=== PATIENT | male | born 1935 | race Caucasian/White ===

== ENCOUNTER → 2018-02-24 | Outpatient (CLI) | payer MEDICARE, OTHER ==
[~2018-02-24] MED LIST: CIPROFLOXACIN500 M1 PO; COREG6.25 MG PO; FLAGYL500 MG PO; LISINOPRIL-HCT1 EACH PO; LISINOPRIL5 MG; OMEPRAZOLE20 MG PO; PRAVACHOL80 MG PO; PROZAC20 MG PO; TRAZODONE HCL150 MG PO
[2018-02-24 10:57] LABS: BASOPHILS % 0.5 % (0.0-1.0); EOSINOPHILS # (AUTO) 0.1 (0.0-0.4); EOSINOPHILS % 1.6 % (0.0-6.0); HEMATOCRIT 38.1 % (38.2-49.6); HEMOGLOBIN 13.4 g/dL (14.0-18.0); LYMPHOCYTES # (AUTO) 1.8 (1.0-3.2); LYMPHOCYTES % 31.3 % (18.0-39.1); MEAN CORPUSCULAR HEMOGLOBIN 29.9 pg (28-32); MEAN CORPUSCULAR HGB CONC 35.2 g/dL (31-35); MONOCYTES # (AUTO) 0.4 (0.2-0.8); MONOCYTES % 7.1 % (4.4-11.3); NEUTROPHILS # (AUTO) 3.4 (2.1-6.9); NEUTROPHILS % 59.3 % (38.7-80.0); PLATELET COUNT 187 x10e3/uL (140-360); RED BLOOD COUNT 4.48 x10e6/uL (4.3-5.7); RED CELL DISTRIBUTION WIDTH 11.6 % (11.7-14.4)
== END ==
LOC: LAB 10:33
PROVIDERS: ATTEND General Practice
DX: R53.1 Weakness (principal)
CPT/HCPCS: 36415; 85025

== ENCOUNTER 2018-10-19 19:50 | Observation (INO) | payer MEDICARE, OTHER ==
[~2018-10-19] VITALS: Ht 183.9 cm; Wt 96.6 kg
--- OUTSIDE RECORDS SUMMARY | 2018-10-19 19:53 | XMS REPORT | Continuity of Care Document ---
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 [employer] Unavailable Unavailable Problems Problem Status Onset Date Classification Date Reported Comments Source Esophageal obstruction 10/11/2017 04/18/[address] [facility] [address] SENT/OTHER Active 09/28/2017 [facility] ESOPHAGEAL OBSTRUCTION DUE TO FOOD IMPAC Active 09/28/2017 [facility] Food in esophagus causing other injury, initial encounter 04/18/2018 [facility] Dysphagia, unspecified 04/18/2018 [facility] Polyp of stomach and duodenum 04/18/2018 [facility] Essential hypertension 04/18/2018 [facility] Dehydration 04/18/2018 [facility] Feeding difficulties 04/18/2018 [facility] Gastro-esophageal reflux disease without esophagitis 04/18/2018 [facility] Hyperlipidemia, unspecified 04/18/2018 [facility] Major depressive disorder, single episode, unspecified 04/18/2018 [facility] ESOPHAGEAL OBSTRUCTION Active [facility] Medications Medication Details Route Status Patient Instructions Ordering Provider Order Date Source Sodium Chloride 0.9% IV 1,000 mL 1,000 mL, Rate: 25 ml/hr, Infuse over: 40 hr, Route: IV, Dosing Weight 100 kg, Total Volume: 1,000, Start date: 09/29/17 17:19:00 CDT, Duration: 30 day, Stop date: 10/29/17 17:18:00 CDT, 2.3, m2 Inactive 09/29/2017 [facility] normal saline 0.9% IV 1,000 mL 1,000 mL, Rate: 100 ml/hr, Infuse over: 10 hr, Route: IV, Dosing Weight 100 kg, Total Volume: 1,000, Start date: 09/29/17 10:02:00 CDT, Duration: 30 day, Stop date: 10/29/17 10:01:00 CDT, 2.3, m2 Inactive 09/29/2017 [facility] Aleve 220 mg, PO, Q12H, 0 Refill(s) Inactive 09/29/2017 [facility] Aspirin 81 MG Enteric Coated Tablet 81 mg=1 tab, PO, Bedtime, # 90 tab, 3 Refill(s) Active 09/29/2017 [facility] Hydrochlorothiazide 12.5 MG / Lisinopril 20 MG Oral Tablet 1 tab, PO, Daily, # 30 tab, 0 Refill(s) Active 09/29/2017 [facility] Trazodone Hydrochloride 50 MG Oral Tablet 50 mg=1 tab, PO, Bedtime, # 30 tab, 1 Refill(s) Active 09/29/2017 [facility] Pravastatin 40 mg, PO, Bedtime, # 30 tab, 0 Refill(s) Active 09/29/2017 [facility] Fluoxetine 20 MG Oral Capsule [Prozac] See Instructions, 1 cap PO Daily, 0 Refill(s) Active 09/29/2017 [facility] Omeprazole 20 mg, PO, BID, 0 Refill(s) Active 09/29/2017 [facility] Nitroglycerin 0.4 MG Sublingual Tablet 0.4 mg, 1 tab, Route: PO, Drug form: TAB, ONCE, Dosing Weight 86.364, kg, Priority: STAT, Start date: 09/28/17 22:14:00 CDT, Stop date: 09/28/17 22:14:00 CDTNotes: (Same as:Nitroquick, Nitrostat) "Do Not Crush" Sublingual tablet Inactive 09/29/2017 [facility] Glucagon 1 mg, Route: IV, Drug form: PDR/INJ, ONCE, Dosing Weight 86.364, kg, Priority: STAT, Start date: 09/28/17 22:14:00 CDT, Stop date: 09/28/17 22:14:00 CDT Inactive 09/29/2017 [facility] Zofran ODT 4 mg, 1 tab, Route: PO, Drug form: TABDIS, ONCE, Dosing Weight 86.364, kg, Priority: STAT, Start date: 09/28/17 21:26:00 CDT, Stop date: 09/28/17 21:26:00 CDTNotes: (Same as: Zofran ODT) Inactive 09/29/2017 [facility] Glucagon 1 mg, Route: IM, Drug form: PDR/INJ, ONCE, Dosing Weight 86.364, kg, Priority: STAT, Start date: 09/28/17 21:26:00 CDT, Stop date: 09/28/17 21:26:00 CDT Inactive 09/29/2017 [facility] Glucagon 1 mg, Route: IV, ONCE, Dosing Weight 86.364, kg, Priority: STAT, Start date: 09/28/17 21:23:00 CDT, Stop date: 09/28/17 21:23:00 CDT Inactive 09/29/2017 [facility] Zofran 4 mg, Route: IVP, Drug form: INJ, ONCE, Dosing Weight 86.364, kg, Priority: STAT, Start date: 09/28/17 21:23:00 CDT, Stop date: 09/28/17 21:23:00 CDT Inactive 09/29/2017 [facility] Allergies, Adverse Reactions, Alerts No Known Medication Allergies Immunizations No Data Provided for This Section Results Order Name Results Value Reference Range Date Interpretation Comments Source CHEM PANEL eGFR 56 09/29/2017 Result Comment: The eGFR is calculated using the CKD-EPI formula. In most young, healthy individuals the eGFR will be >90 mL/min/1.73m2. The eGFR declines with age. An eGFR of 60-89 may be normal in some populations, particularly the elderly, for whom the CKD-EPI formula has not been extensively validated. Use of the eGFR is not recommended in the following populations:

Individuals with unstable creatinine concentrations, including patients and those with serious co-morbid conditions.

Patients with extremes in muscle mass or diet.

The data above are obtained from the National Kidney Disease Education Program (NKDEP) which additionally recommends that when the eGFR is used in patients with extremes of body mass index for purposes of drug dosing, the eGFR should be multiplied by the estimated BMI. [facility] CHEM PANEL Calcium Lvl 7.8 8.5 - 10.5 09/29/2017 [facility] CHEM PANEL Creatinine Lvl 1.21 0.50 - 1.40 09/29/2017 [facility] CHEM PANEL Glucose Lvl 94 70 - 99 09/29/2017 [facility] CHEM PANEL CO2 27 24 - 32 09/29/2017 [facility] CHEM PANEL Chloride Lvl 103 95 - 109 09/29/2017 [facility] CHEM PANEL Sodium Lvl 139 135 - 145 09/29/2017 [facility] CHEM PANEL BUN 15 7 - 22 09/29/2017 [facility] CHEM PANEL Potassium Lvl 4.4 3.5 - 5.1 09/29/2017 [facility] CHEM PANEL AGAP 13.4 10.0 - 20.0 09/29/2017 [facility] HEMATOLOGY Hgb 13.2 14.0 - 18.0 09/29/2017 [facility] RBC 4.39 4.70 - 6.10 09/29/2017 [facility] Hct 37.5 42.0 - 54.0 09/29/2017 [facility] MCV 85.3 80.0 - 94.0 09/29/2017 [facility] Platelet 301 133 - 450 09/29/2017 [facility] RDW 12.5 11.5 - 14.5 09/29/2017 [facility] MPV 7.6 7.4 - 10.4 09/29/2017 [facility] MCHC 35.2 32.0 - 36.0 09/29/2017 [facility] MCH 30.0 27.0 - 31.0 09/29/2017 [facility] WBC 6.3 3.7 - 10.4 09/29/2017 [facility] Segs 65.9 45.0 - 75.0 09/29/2017 [facility] Monocytes 7.0 2.0 - 12.0 09/29/2017 [facility] Lymphocytes 25.5 20.0 - 40.0 09/29/2017 [facility] Eosinophils 1.0 0.0 - 4.0 09/29/2017 [facility] Monocytes # 0.4 0.0 - 0.8 09/29/2017 [facility] Basophils 0.6 0.0 - 1.0 09/29/2017 [facility] Lymphocytes # 1.6 1.0 - 5.5 09/29/2017 [facility] Neutrophils # 4.1 1.5 - 8.1 09/29/2017 [facility] Eosinophils # 0.1 0.0 - 0.5 09/29/2017 [facility] Pathology Reports No Data Provided for This Section Diagnostic Reports Report Value Date Source Chest 2 views DX Patient Name: TRACI BRIDGES : 1935; Age: 82 years y/o Male MR: [id number] * CHEST, 2 views HISTORY: Abnormal chest sounds, evaluate for possible foreign body. COMPARISON: None TECHNIQUE: Frontal and lateral radiographs of the chest were obtained. FINDINGS: No radiopaque foreign body is seen. The lungs are clear. There are no pleural effusions. The heart and pulmonary vasculature are within normal limits. The regional skeleton is unremarkable. IMPRESSION: 1. No active disease. SL: GHASSAN 09/28/2017 [facility] Consultation Notes No Data Provided for This Section Discharge Summaries No Data Provided for This Section History and Physicals No Data Provided for This Section Vital Signs Vital Sign Value Date Comments Source Systolic (mm Hg) 156 09/29/2017 [facility] Diastolic (mm Hg) 77 09/29/2017 [facility] Respitory Rate 19 09/29/2017 [facility] Systolic (mm Hg) 147 09/29/2017 [facility] Diastolic (mm Hg) 83 09/29/2017 [facility] Respitory Rate 18 09/29/2017 [facility] Respitory Rate 18 09/29/2017 [facility] Systolic (mm Hg) 165 09/29/2017 [facility] Diastolic (mm Hg) 66 09/29/2017 [facility] Heart Rate 62 09/29/2017 [facility] Temperature Oral (F) 98.4 F 09/29/2017 [facility] Temperature Oral (F) 97.8 F 09/29/2017 [facility] Heart Rate 51 09/29/2017 [facility] Heart Rate 52 09/29/2017 [facility] Temperature Oral (F) 97.6 F 09/29/2017 [facility] BMI Calculated 28.31 09/29/2017 [facility] Weight 100 09/29/2017 [facility] Height 187.96 cm 09/29/2017 [facility] Weight 86.364 09/29/2017 [facility] Encounters Location Location Details Encounter Type Encounter Number Reason For Visit Attending Provider ADM Date DC Date Status Source [facility] Observation [id number] Gustavo Alvarez Jr 09/29/2017 09/29/2017 [facility] Procedures Procedure Code Date Perfomer Comments Source Implantation of penile prosthesis [id number] [facility] Procedure on prostate [id number] [facility] Tonsillectomy [id number] [facility] Assessment and Plan Assessment and Plan Date Source Extracted from:Title: Clinical Document Author: Mike Lam MD Date: 09/29/17 Consult Note Gastroenterology and Hepatology Reason for Consult: Referring MD: Gustavo Mcgowan MD IMPRESSION: Dysphagia Esophageal foreign body History of esophageal stenosis Feeding difficulty Dehydration RECOMMENDATIONS AND PLAN: EGD today- proecure, risks, benefits, potential complications and alternatives discussed with patient. Keep n.p.o. IV fluids Disposition to follow after Plan discussed with patient, nurse. HPI: Patient a pleasant 82-year-old male, patient of Dr. Cipriano Bain, presented the ER yesterday with esophageal bolus food obstruction symptoms, after swallowing a piece of steak. He has a history of prior esophageal bolus obstruction and esophageal stenosis, question details, so usually watches what he eats and chews food carefully. He was unable to swallow any liquids subsequently, and presented the ER. Conservative measures including IV glucagon seem to fail as he still has a sensation of retrosternal discomfort and could not keep liquids down. Denies any acute cardiopulmonary symptoms. His weight is stable appetite usually good. Does use naproxen on and off but is also on omeprazole. States he last had an EGD and colonoscopy about 2 months ago but does not recall report. No dilation was performed. PMH: Esophageal stenosis, status post prior dilation. Hiatal hernia; GERD Erectile dysfunction Prostate cancer. Hyperlipidemia Hypertension Depression Arthritis PSH: Tonsillectomy Implantation of penile prosthesis Prostatectomy-required several operations PSYCHO-SOCIAL: Retired. Denies tobacco alcohol or recreational drug use. FAMILY HISTORY: Nil of significance. No colorectal dysplasia. No esophageal cancer. Medication List Active Medications Ordered Sodium Chloride 0.9% IV 1000 mL: 100 ml/hr, IV, Stop: 10/29/17 10:01:00 CDT. Documented aspirin: 81 mg, 1 tab, PO, Bedtime, 90 tab, 3 Refill(s). FLUoxetine: See Instructions, 1 cap PO Daily, 0 Refill(s). hydrochlorothiazide-lisinopril: 1 tab, PO, Daily, 30 tab, 0 Refill(s). naproxen: 220 mg, PO, Q12H, 0 Refill(s). omeprazole: 20 mg, PO, BID, 0 Refill(s). pravastatin: 40 mg, PO, Bedtime, 30 tab, 0 Refill(s). trazodone: 50 mg, 1 tab, PO, Bedtime, 30 tab, 1 Refill(s). Medications Inactivated in the Last 72 Hours glucagon: 1 mg, IV, ONCE. glucagon: 1 mg, IM, ONCE. glucagon: 1 mg, PYXIS, ONCE. glucagon: 1 mg, IV, ONCE. glucagon: 1 mg, PYXIS, ONCE. nitroglycerin: 0.4 mg, 1 tab, PO, ONCE. nitroglycerin: 0.4 mg, 1 tab, PYXIS, ONCE. ondansetron: 4 mg, IVP, ONCE. ondansetron: 4 mg, 1 tab, PO, ONCE. ondansetron: 4 mg, 1 tab, PYXIS, ONCE. Allergies: NKDA Review of Systems: Reports some chronic arthritis issues, dysphagia as mentioned above, chronic urinary outflow symptoms, no vague chest discomfort since yesterday. No dyspnea, hemoptysis, wheezing, cough, pleuritic pains. No palpitations seizures falls lightheadedness or syncope. Depression controlled at this time. Otherwise -14 point review of systems Physical Examination: Vital signs as below. NAD HEENT: Mild angular colitis, EOMI, atraumatic, no asymmetry; neck some restriction range of movement,, no LN/ thyromegaly/ mass/ bruits, JVD neg Chest: CTA, resonant to percussion, no accessory muscle use Cardiac: regular rhythm, normal S1 and S2; apex not displaced, no edema Abdo: Soft, nor midline scar, not distended, non-tender, no mass, no ascites, no hernia, normal BS, no bruits Ext: No cyanosis, clubbing; peripheral pulses palpable Neuro: A and O x3, grossly intact cranial nerves; non-focal exam. MS: DJD changes of extremities, restricted spine mvt Vitals Tmp(F) Pulse BP RR SpO2 FIO2 09/29 07:12 97.8 51 160/87 18 97 --- 09/29 04:38 97.6 52 183/89 18 97 --- 09/29 00:56 97.8 54 163/80 -- --- --- 09/29 00:35 ---- 58 165/78 -- 99 --- 09/28 23:46 ---- 71 175/78 18 --- --- 24 Hr Tmax: 97.8F (36.56c) at 09/29 07:12 Vital Signs are the last 5 in the past 48 hours. Date Wt(kg) Wt(lb) Ht(cm) Ht(in) Method 09/29 100.00 220.00 187.96 74.00 Estimated 09/28 (initial) 86.36 190.00 Estimated 09/29 187.96 74.00 Stated No qualifying lab data available 09/29/2017 [facility] Plan of Care No Data Provided for This Section Social History Social History Date Source Social History TypeResponse Smoking Status Never smoker; Exposure to Tobacco Smoke None; Cigarette Smoking Last 365 Days No; Reg Smoking Cessation Counseling No entered on: 09/28/17 09/29/2017 [facility] Family History No Data Provided for This Section Advance Directives No Data Provided for This Section Functional Status No Data Provided for This Section
--- OUTSIDE RECORDS SUMMARY | 2018-10-19 19:54 | XMS REPORT | Summary of Care ---
Author Author [facility] Organization [facility] Address Unknown Phone Unavailable Encounter HQ Pati(TERRELL) [id number] Date(s): 09/28/17 - 09/29/17 [facility] [address] [place] [address]- Encounter Diagnosis Esophageal obstruction (Final) - 10/10/17 Food in esophagus causing other injury, initial encounter (Final) - Dysphagia, unspecified (Final) - Polyp of stomach and duodenum (Final) - Essential (primary) hypertension (Final) - Dehydration (Final) - Feeding difficulties (Final) - Gastro-esophageal reflux disease without esophagitis (Final) - Hyperlipidemia, unspecified (Final) - Major depressive disorder, single episode, unspecified (Final) - Discharge Disposition: Home or Self Care Attending Physician: Gustavo Spicer MD Admitting Physician: Gustavo Spicer MD Vital Signs 1 2 3 Most recent to oldest [Reference Range]: 187.96 cm (09/29/17 1:19 AM) Height 98.4 DegF (09/29/17 12:10 PM) 97.8 DegF (09/29/17 7:12 AM) 97.6 DegF (09/29/17 4:38 AM) Temperature Oral [96.4-99.1 DegF] 156/77 mmHg *HI* (09/29/17 4:45 PM) 147/83 mmHg *HI* (09/29/17 4:30 PM) 165/66 mmHg *HI* (09/29/17 4:18 PM) Blood Pressure [90-140/60-90 mmHg] 19 BRMIN (09/29/17 4:45 PM) 18 BRMIN (09/29/17 4:30 PM) 18 BRMIN (09/29/17 4:18 PM) Respiratory Rate [14-20 BRMIN] 62 bpm (09/29/17 12:10 PM) 51 bpm *LOW* (09/29/17 7:12 AM) 52 bpm *LOW* (09/29/17 4:38 AM) Peripheral Pulse Rate [60-100 bpm] 100 kg (09/29/17 1:19 AM) 86.364 kg (09/28/17 7:26 PM) Weight 28.31 m2 (09/29/17 1:19 AM) Body Mass Index Problem List No data available for this section Allergies, Adverse Reactions, Alerts Substance Reaction Severity Status NKDA Active Medications Aleve 220 mg, PO, Q12H, 0 Refill(s) Start Date: 09/29/17 Stop Date: 09/29/17 Status: Discontinued aspirin 81 mg tablet, enteric coated 81 mg=1 tab, PO, Bedtime, # 90 tab, 3 Refill(s) Start Date: 09/29/17 Status: Ordered glucagon 1 mg, Route: IV, ONCE, Dosing Weight 86.364, kg, Priority: STAT, Start date: 21:23:00 CDT, Stop date: 09/28/17 21:23:00 CDT Start Date: 09/28/17 Stop Date: 09/28/17 Status: Discontinued glucagon 1 mg, Route: IM, Drug form: PDR/INJ, ONCE, Dosing Weight 86.364, kg, Priority: S TAT, Start date: 09/28/17 21:26:00 CDT, Stop date: 09/28/17 21:26:00 CDT Start Date: 09/28/17 Stop Date: 09/28/17 Status: Completed glucagon 1 mg, Route: IV, Drug form: PDR/INJ, ONCE, Dosing Weight 86.364, kg, Priority: S TAT, Start date: 09/28/17 22:14:00 CDT, Stop date: 09/28/17 22:14:00 CDT Start Date: 09/28/17 Stop Date: 09/28/17 Status: Completed hydrochlorothiazide-lisinopril 12.5 mg-20 mg oral tablet 1 tab, PO, Daily, # 30 tab, 0 Refill(s) Start Date: 09/29/17 Status: Ordered nitroglycerin 0.4 mg sublingual tablet 0.4 mg, 1 tab, Route: PO, Drug form: TAB, ONCE, Dosing Weight 86.364, kg, Priori ty: STAT, Start date: 09/28/17 22:14:00 CDT, Stop date: 09/28/17 22:14:00 CDT Notes: (Same as:BurtonquTom alfonsotat)"Do Not Crush" Sublingual tablet Start Date: 09/28/17 Stop Date: 09/28/17 Status: Completed normal saline 0.9% IV 1,000 mL 1,000 mL, Rate: 100 ml/hr, Infuse over: 10 hr, Route: IV, Dosing Weight 100 kg, Total Volume: 1,000, Start date: 09/29/17 10:02:00 CDT, Duration: 30 day, Stop d ate: 10/29/17 10:01:00 CDT, 2.3, m2 Start Date: 09/29/17 Stop Date: 09/29/17 Status: Discontinued omeprazole 20 mg, PO, BID, 0 Refill(s) Start Date: 09/29/17 Status: Ordered pravastatin 40 mg, PO, Bedtime, # 30 tab, 0 Refill(s) Start Date: 09/29/17 Status: Ordered PROzac 20 mg oral capsule See Instructions, 1 cap PO Daily, 0 Refill(s) Start Date: 09/29/17 Status: Ordered Sodium Chloride 0.9% IV 1,000 mL 1,000 mL, Rate: 25 ml/hr, Infuse over: 40 hr, Route: IV, Dosing Weight 100 kg, T otal Volume: 1,000, Start date: 09/29/17 17:19:00 CDT, Duration: 30 day, Stop da te: 10/29/17 17:18:00 CDT, 2.3, m2 Start Date: 09/29/17 Stop Date: 09/29/17 Status: Discontinued trazodone 50 mg oral tablet 50 mg=1 tab, PO, Bedtime, # 30 tab, 1 Refill(s) Start Date: 09/29/17 Status: Ordered Zofran 4 mg, Route: IVP, Drug form: INJ, ONCE, Dosing Weight 86.364, kg, Priority: STAT , Start date: 09/28/17 21:23:00 CDT, Stop date: 09/28/17 21:23:00 CDT Start Date: 09/28/17 Stop Date: 09/28/17 Status: Discontinued Zofran ODT 4 mg, 1 tab, Route: PO, Drug form: TABDIS, ONCE, Dosing Weight 86.364, kg, Prior ity: STAT, Start date: 09/28/17 21:26:00 CDT, Stop date: 09/28/17 21:26:00 CDT Notes: (Same as: Zofran ODT) Start Date: 09/28/17 Stop Date: 09/28/17 Status: Completed Results ELECTROLYTES Most recent to 1 oldest [Reference Range]: Sodium Lvl [135-145 139 mEq/L mEq/L] (09/29/17 1:10 PM) Potassium Lvl 4.4 mEq/L [3.5-5.1 mEq/L] (09/29/17 1:10 PM) Chloride Lvl [95-109 103 mEq/L mEq/L] (09/29/17 1:10 PM) CO2 [24-32 mEq/L] 27 mEq/L (09/29/17 1:10 PM) AGAP [10.0-20.0 13.4 mEq/L mEq/L] (09/29/17 1:10 PM) CHEM PANEL Most recent to 1 oldest [Reference Range]: Creatinine Lvl 1.21 mg/dL [0.50-1.40 mg/dL] (09/29/17 1:10 PM) eGFR 56 mL/min/1.73m2 1 *NA* (09/29/17 1:10 PM) BUN [7-22 mg/dL] 15 mg/dL (09/29/17 1:10 PM) Glucose Lvl [70-99 94 mg/dL mg/dL] (09/29/17 1:10 PM) Calcium Lvl 7.8 mg/dL [8.5-10.5 mg/dL] *LOW* (09/29/17 1:10 PM) 1Result Comment: The eGFR is calculated using the [...] from the National Kidney Disease Education Program ( NKDEP) which additionally recommends that when the eGFR is used in patients with extremes of body mass index for purposes of drug dosing, the eGFR should be mul tiplied by the estimated BMI. HEMATOLOGY Most recent to 1 oldest [Reference Range]: WBC [3.7-10.4 K/CMM] 6.3 K/CMM (09/29/17 1:10 PM) RBC [4.70-6.10 4.39 M/CMM M/CMM] *LOW* (09/29/17 1:10 PM) Hgb [14.0-18.0 g/dL] 13.2 g/dL *LOW* (09/29/17 1:10 PM) Hct [42.0-54.0 %] 37.5 % *LOW* (09/29/17 1:10 PM) MCV [80.0-94.0 fL] 85.3 fL (09/29/17 1:10 PM) MCH [27.0-31.0 pg] 30.0 pg (09/29/17 1:10 PM) MCHC [32.0-36.0 35.2 g/dL g/dL] (09/29/17 1:10 PM) RDW [11.5-14.5 %] 12.5 % (09/29/17 1:10 PM) MPV [7.4-10.4 fL] 7.6 fL (09/29/17 1:10 PM) Platelet [133-450 301 K/CMM K/CMM] (09/29/17 1:10 PM) Segs [45.0-75.0 %] 65.9 % (09/29/17 1:10 PM) Lymphocytes 25.5 % [20.0-40.0 %] (09/29/17 1:10 PM) Monocytes [2.0-12.0 7.0 % %] (09/29/17 1:10 PM) Eosinophils [0.0-4.0 1.0 % %] (09/29/17 1:10 PM) Basophils [0.0-1.0 0.6 % %] (09/29/17 1:10 PM) Neutrophils # 4.1 K/CMM [1.5-8.1 K/CMM] (09/29/17 1:10 PM) Lymphocytes # 1.6 K/CMM [1.0-5.5 K/CMM] (09/29/17 1:10 PM) Monocytes # [0.0-0.8 0.4 K/CMM K/CMM] (09/29/17 1:10 PM) Eosinophils # 0.1 K/CMM [0.0-0.5 K/CMM] (09/29/17 1:10 PM) Immunizations No data available for this section Procedures Procedure Date Related Diagnosis Body Site Status Implantation of penile prosthesis Completed Procedure on prostate Completed Tonsillectomy Completed Social History Social History Type Response Smoking Status Never smoker; Exposure to Tobacco Smoke None; Cigarette Smoking Last 365 Days No; Reg Smoking Cessation Counseling No entered on: 09/28/17 Assessment and Plan Extracted from: Title: Clinical Document Author: Mike Lam MD Date: [...] DJD changes of extremities, restricted spine mvt VitalsTmp(F)[id number] 09/29 07:1297.470130/[id number]--- 09/29 04:3897.535920/372336--- 09/29 00:5697.787416/80-------- 09/29 00:35----04870/78--99--- 09/28 23:46----32503/7818------ 24 Hr Tmax: 97.8F (36.56c) at 09/29 07:12Vital Signs are the last 5 in the past 48 hours. DateWt(kg)Wt(lb)Ht(cm)Ht(in)Method .00 220.42997.96 74.00Estimated 09/28 (initial) 86.36 190.00Estimated .96 74.00Stated No qualifying lab data available
[2018-10-19] MEDS ORDERED: ONDANSETRON HCL INJ 2MG/ML 2ML 2 MG/ML VIAL IV STA (19:59)
[2018-10-19] MEDS ORDERED: GLUCAGON FOR INJ 1 MG VIAL IV ONE (20:00)
[2018-10-19 20:19] LABS: BASOPHILS % 0.4 % (0.0-1.0); EOSINOPHILS # (AUTO) 0.1 (0.0-0.4); EOSINOPHILS % 0.9 % (0.0-6.0); HEMOGLOBIN 13.1 g/dL (14.0-18.0); LYMPHOCYTES # (AUTO) 2.5 (1.0-3.2); LYMPHOCYTES % 31.4 % (18.0-39.1); MEAN CORPUSCULAR HEMOGLOBIN 29.8 pg (28-32); MEAN CORPUSCULAR HGB CONC 35.4 g/dL (31-35); MEAN CORPUSCULAR VOLUME 84.1 fL (81-99); MONOCYTES # (AUTO) 0.6 (0.2-0.8); MONOCYTES % 7.1 % (4.4-11.3); NEUTROPHILS # (AUTO) 4.8 (2.1-6.9); NEUTROPHILS % 59.8 % (38.7-80.0); PLATELET COUNT 215 x10e3/uL (140-360); RED CELL DISTRIBUTION WIDTH 11.7 % (11.7-14.4)
[2018-10-19 20:39] LABS: INR 0.95; PROTHROMBIN TIME 13.2 seconds (11.9-14.5)
[2018-10-19 20:40] LABS: PARTIAL THROMBOPLASTIN TIME 31.9 seconds (23.8-35.5)
[2018-10-19 20:50] LABS: ALBUMIN 4.3 g/dL (3.5-5.0); ALBUMIN/GLOBULIN RATIO 1.6 (0.8-2.0); ANION GAP 13.1 mmol/L (8-16); CALCIUM 9.8 mg/dL (8.4-10.2); CREATININE, SERUM 1.28 mg/dL (0.72-1.25); POTASSIUM 4.1 mmol/L (3.5-5.1)
--- NOTE | 2018-10-19 21:17 | Diagnostic Imaging Report ---
History: Evaluate for food bolus in the esophagus Comparison studies: None Technique: Axial images were obtained from the skull base to the thoracic inlet. Coronal and sagittal images reconstructed from the axial data. Radiation dose: Total DLP: 439 mGy*cm. Estimated effective dose: DLP x 0.015 Intravenous contrast: None Findings: Evaluation of the neck is limited due to the absence of intravenous contrast. In spite of this limitation, Soft tissues: No mass or fluid collection. Upper aerodigestive tract: No mass or gross abnormalities. The included thoracic esophagus is not significantly distended and contains air and small fluid. Cannot evaluate the distal thoracic esophagus on this exam. Lymph nodes: No enlarged lymph nodes. Vessels: Cannot evaluate. Mild calcified atherosclerosis in the aortic arch and carotid bulbs. Glands (thyroid, parotid and submandibular): Normal in size and symmetric. No masses. Orbits: No abnormalities. Paranasal sinuses: Clear aside from small right maxillary sinus alveolar recess retention cysts. Temporal bones: No gross abnormalities. Skull base and facial bones: Intact. Dentition: Edentulous. Cervical spine: Moderately degenerated disks from C3 to C6 and fused disks from C6 to T1. No significant canal stenosis. Multilevel uncovertebral facet arthrosis result in multilevel foraminal stenosis (severe left and moderate right at C2-C3 and C3-C4, severe bilaterally at C4-C5 and C5-C6 mild bilaterally at C6-C7 and at C7-T1 IMPRESSION: 1. No acute abnormalities. Specifically, no evidence of upper esophageal thoracic obstruction. 2. Advanced degenerative changes in the cervical spine. Signed by: Dr. Brain Medina M.D. on 10/19/2018 9:14 PM
--- OUTSIDE RECORDS SUMMARY | 2018-10-19 22:13 | XMS REPORT | Continuity of Care Document ---
Author Author [facility] Address Unknown Phone Unavailable Care Team Providers Care Loan Services Professional Name Role Phone [employer] Unavailable Unavailable Problems Problem Status Onset Date Classification Date Reported Comments Source Esophageal obstruction 10/11/2017 04/18/[address] [facility] [address] SENT/OTHER Active 09/28/2017 [facility] ESOPHAGEAL OBSTRUCTION DUE TO FOOD IMPAC Active 09/28/2017 [facility] Food in esophagus causing other injury, initial encounter 04/18/2018 [facility] Dysphagia, unspecified 04/18/2018 [facility] Polyp of stomach and duodenum 04/18/2018 [facility] Essential hypertension 04/18/2018 [facility] Dehydration 04/18/2018 [facility] Feeding difficulties 04/18/2018 [facility] Gastro-esophageal reflux disease without esophagitis 04/18/2018 [facility] Hyperlipidemia, unspecified 04/18/2018 [facility] Major depressive disorder, single episode, unspecified 04/18/2018 [facility] ESOPHAGEAL OBSTRUCTION Active [facility] Medications Medication Details Route Status Patient Instructions Ordering Provider Order Date Source Sodium Chloride 0.9% IV 1,000 mL 1,000 mL, Rate: 25 ml/hr, Infuse over: 40 hr, Route: IV, Dosing Weight 100 kg, Total Volume: 1,000, Start date: 09/29/17 17:19:00 CDT, Duration: 30 day, Stop date: 10/29/17 17:18:00 CDT, 2.3, m2 Inactive 09/29/2017 [facility] normal saline 0.9% IV 1,000 mL 1,000 mL, Rate: 100 ml/hr, Infuse over: 10 hr, Route: IV, Dosing Weight 100 kg, Total Volume: 1,000, Start date: 09/29/17 10:02:00 CDT, Duration: 30 day, Stop date: 10/29/17 10:01:00 CDT, 2.3, m2 Inactive 09/29/2017 [facility] Aleve 220 mg, PO, Q12H, 0 Refill(s) Inactive 09/29/2017 [facility] Aspirin 81 MG Enteric Coated Tablet 81 mg=1 tab, PO, Bedtime, # 90 tab, 3 Refill(s) Active 09/29/2017 [facility] Hydrochlorothiazide 12.5 MG / Lisinopril 20 MG Oral Tablet 1 tab, PO, Daily, # 30 tab, 0 Refill(s) Active 09/29/2017 [facility] Trazodone Hydrochloride 50 MG Oral Tablet 50 mg=1 tab, PO, Bedtime, # 30 tab, 1 Refill(s) Active 09/29/2017 [facility] Pravastatin 40 mg, PO, Bedtime, # 30 tab, 0 Refill(s) Active 09/29/2017 [facility] Fluoxetine 20 MG Oral Capsule [Prozac] See Instructions, 1 cap PO Daily, 0 Refill(s) Active 09/29/2017 [facility] Omeprazole 20 mg, PO, BID, 0 Refill(s) Active 09/29/2017 [facility] Nitroglycerin 0.4 MG Sublingual Tablet 0.4 mg, 1 tab, Route: PO, Drug form: TAB, ONCE, Dosing Weight 86.364, kg, Priority: STAT, Start date: 09/28/17 22:14:00 CDT, Stop date: 09/28/17 22:14:00 CDTNotes: (Same as:Nitroquick, Nitrostat) "Do Not Crush" Sublingual tablet Inactive 09/29/2017 [facility] Glucagon 1 mg, Route: IV, Drug form: PDR/INJ, ONCE, Dosing Weight 86.364, kg, Priority: STAT, Start date: 09/28/17 22:14:00 CDT, Stop date: 09/28/17 22:14:00 CDT Inactive 09/29/2017 [facility] Zofran ODT 4 mg, 1 tab, Route: PO, Drug form: TABDIS, ONCE, Dosing Weight 86.364, kg, Priority: STAT, Start date: 09/28/17 21:26:00 CDT, Stop date: 09/28/17 21:26:00 CDTNotes: (Same as: Zofran ODT) Inactive 09/29/2017 [facility] Glucagon 1 mg, Route: IM, Drug form: PDR/INJ, ONCE, Dosing Weight 86.364, kg, Priority: STAT, Start date: 09/28/17 21:26:00 CDT, Stop date: 09/28/17 21:26:00 CDT Inactive 09/29/2017 [facility] Glucagon 1 mg, Route: IV, ONCE, Dosing Weight 86.364, kg, Priority: STAT, Start date: 09/28/17 21:23:00 CDT, Stop date: 09/28/17 21:23:00 CDT Inactive 09/29/2017 [facility] Zofran 4 mg, Route: IVP, Drug form: INJ, ONCE, Dosing Weight 86.364, kg, Priority: STAT, Start date: 09/28/17 21:23:00 CDT, Stop date: 09/28/17 21:23:00 CDT Inactive 09/29/2017 [facility] Allergies, Adverse Reactions, Alerts No Known [...] should be multiplied by the estimated BMI. [facility] CHEM PANEL Calcium Lvl 7.8 8.5 - 10.5 09/29/2017 [facility] CHEM PANEL Creatinine Lvl 1.21 0.50 - 1.40 09/29/2017 [facility] CHEM PANEL Glucose Lvl 94 70 - 99 09/29/2017 [facility] CHEM PANEL CO2 27 24 - 32 09/29/2017 [facility] CHEM PANEL Chloride Lvl 103 95 - 109 09/29/2017 [facility] CHEM PANEL Sodium Lvl 139 135 - 145 09/29/2017 [facility] CHEM PANEL BUN 15 7 - 22 09/29/2017 [facility] CHEM PANEL Potassium Lvl 4.4 3.5 - 5.1 09/29/2017 [facility] CHEM PANEL AGAP 13.4 10.0 - 20.0 09/29/2017 [facility] HEMATOLOGY Hgb 13.2 14.0 - 18.0 09/29/2017 [facility] RBC 4.39 4.70 - 6.10 09/29/2017 [facility] Hct 37.5 42.0 - 54.0 09/29/2017 [facility] MCV 85.3 80.0 - 94.0 09/29/2017 [facility] Platelet 301 133 - 450 09/29/2017 [facility] RDW 12.5 11.5 - 14.5 09/29/2017 [facility] MPV 7.6 7.4 - 10.4 09/29/2017 [facility] MCHC 35.2 32.0 - 36.0 09/29/2017 [facility] MCH 30.0 27.0 - 31.0 09/29/2017 [facility] WBC 6.3 3.7 - 10.4 09/29/2017 [facility] Segs 65.9 45.0 - 75.0 09/29/2017 [facility] Monocytes 7.0 2.0 - 12.0 09/29/2017 [facility] Lymphocytes 25.5 20.0 - 40.0 09/29/2017 [facility] Eosinophils 1.0 0.0 - 4.0 09/29/2017 [facility] Monocytes # 0.4 0.0 - 0.8 09/29/2017 [facility] Basophils 0.6 0.0 - 1.0 09/29/2017 [facility] Lymphocytes # 1.6 1.0 - 5.5 09/29/2017 [facility] Neutrophils # 4.1 1.5 - 8.1 09/29/2017 [facility] Eosinophils # 0.1 0.0 - 0.5 09/29/2017 [facility] Pathology Reports No Data Provided for This Section Diagnostic Reports Report Value Date Source Chest 2 views DX Patient Name: TRACI BRIDGES : 1935; Age: 82 years y/o Male MR: [id number] * CHEST, 2 views HISTORY: Abnormal chest sounds, evaluate for possible foreign body. COMPARISON: None TECHNIQUE: Frontal and lateral radiographs of the chest were obtained. FINDINGS: No radiopaque foreign body is seen. The lungs are clear. There are no pleural effusions. The heart and pulmonary vasculature are within normal limits. The regional skeleton is unremarkable. IMPRESSION: 1. No active disease. SL: GHASSAN 09/28/2017 [facility] Consultation Notes No Data Provided for This Section Discharge Summaries No Data Provided for This Section History and Physicals No Data Provided for This Section Vital Signs Vital Sign Value Date Comments Source Systolic (mm Hg) 156 09/29/2017 [facility] Diastolic (mm Hg) 77 09/29/2017 [facility] Respitory Rate 19 09/29/2017 [facility] Systolic (mm Hg) 147 09/29/2017 [facility] Diastolic (mm Hg) 83 09/29/2017 [facility] Respitory Rate 18 09/29/2017 [facility] Respitory Rate 18 09/29/2017 [facility] Systolic (mm Hg) 165 09/29/2017 [facility] Diastolic (mm Hg) 66 09/29/2017 [facility] Heart Rate 62 09/29/2017 [facility] Temperature Oral (F) 98.4 F 09/29/2017 [facility] Temperature Oral (F) 97.8 F 09/29/2017 [facility] Heart Rate 51 09/29/2017 [facility] Heart Rate 52 09/29/2017 [facility] Temperature Oral (F) 97.6 F 09/29/2017 [facility] BMI Calculated 28.31 09/29/2017 [facility] Weight 100 09/29/2017 [facility] Height 187.96 cm 09/29/2017 [facility] Weight 86.364 09/29/2017 [facility] Encounters Location Location Details Encounter Type Encounter Number Reason For Visit Attending Provider ADM Date DC Date Status Source [facility] [place] Observation [id number] Gustavo Alvarez Jr 09/29/2017 09/29/2017 [facility] Procedures Procedure Code Date Perfomer Comments Source Implantation of penile prosthesis 09445706 [facility] Procedure on prostate [id number] [facility] Tonsillectomy [id number] [facility] Assessment and Plan Assessment and Plan [...] Stated No qualifying lab data available 09/29/2017 [facility] Plan of Care No Data Provided for This Section Social History Social History Date Source Social History TypeResponse Smoking Status Never smoker; Exposure to Tobacco Smoke None; Cigarette Smoking Last 365 Days No; Reg Smoking Cessation Counseling No entered on: 09/28/17 09/29/2017 [facility] Family History No Data Provided for This Section Advance Directives No Data Provided for This Section Functional Status No Data Provided for This Section
[2018-10-19] MEDS: SODIUM CHLORIDE 0.9% 1000ML 1,000 ML IV SCH (22:14)
[2018-10-19] MEDS ORDERED: ONDANSETRON HCL INJ 2MG/ML 2ML 2 MG/ML VIAL IV PRN (22:15)
[2018-10-19] MEDS ORDERED: HYDRALAZINE HCL 20 MG/ML VIAL IV PRN (22:15)
--- NOTE | 2018-10-19 22:15 | NUR ---
PT DEPARTED UNIT VIA STRETCHER WITH NAD NOTED TO GO TO ASSIGNED ROOM 113
[2018-10-19 22:16] VITALS: BP 124/87
--- NOTE | 2018-10-19 22:16 | NUR ---
Received the pt from er in stretcher with c/o dysphagia .reports h/o esophageal stricture.admission assessment done.aaox4.ambulates.voided.no resp.distress.no pain voiced.iv normal saline is running @125 to left ac.on npo.consults obtained.oriented to the unit.bed locked and in lowest position.phone and call light within reach.instructed to call for assistance as needed.keep monitor the pt.
[2018-10-19 22:41] VITALS: BP 124/87
[2018-10-20 05:52] VITALS: BP 174/89
[2018-10-20] MEDS: SODIUM CHLORIDE 0.9% 1000ML 1,000 ML IV SCH (05:57)
--- NOTE | 2018-10-20 07:00 | NUR ---
BEDSIDE ROUNDS COMPLETE NO DISTRESS NOTED, DENIES PAIN AT THIS TIME, IVF INFUSING TO L AC 18G NO SS OF INFILTRATION NOTED, NO OTHER CO VOICED CALL LIGHT IN REACH WILL CONTINUE TO MONITOR
--- NOTE | 2018-10-20 07:00 | NUR ---
Bed side shift report given to the oncoming rn.stable condition.
[2018-10-20 08:07] VITALS: BP 174/89
[2018-10-20 08:50] VITALS: BP 137/69
[2018-10-20] MEDS ORDERED: PANTOPRAZOLE 40 MG 10ML VIAL IV SCH (09:00)
[2018-10-20 13:34] VITALS: BP 173/84
--- NOTE | 2018-10-20 14:06 | NUR ---
EDUCATED ABOUT IMM, SIGNED, FILED IN CHART, WITH COPY LEFT WITH FAMILY AT BEDSIDE.
[2018-10-20] MEDS ORDERED: FENTANYL CITRATE/PF 100MCG/2 ML INJ ONE (14:33)
[2018-10-20 16:55] VITALS: BP 143/65
--- NOTE | 2018-10-20 18:04 | Consultation ---
DATE OF CONSULTATION: CHIEF COMPLAINT: Dysphagia. HISTORY OF PRESENT ILLNESS: A very pleasant 83-year-old white man, who comes with foreign body in the esophagus and acute dysphagia. The patient unable to swallow after eating chicken. He had multiple EGDs in the past. PAST MEDICAL HISTORY: Hypertension. Other medical illnesses include depression, hyperlipidemia. PAST SURGICAL HISTORY: Not significant except for tonsillectomy and prostate surgery. FAMILY HISTORY: Noncontributory. SOCIAL HISTORY: Lives at home. No toxic habits. MEDICATIONS: See list includes omeprazole. REVIEW OF SYSTEMS: Currently negative. PHYSICAL EXAMINATION: VITAL SIGNS: Blood pressure 140/80, pulse 80, and temperature 98. GENERAL: Well-nourished white man, in no distress. HEENT: No pallor. ABDOMEN: Soft, nontender. EXTREMITIES: No edema. ASSESSMENT/PLAN: Dysphagia , possible dilatation. MD MARCELO Tamez/SHLOMO /[id number]
[2018-10-20] MEDS ORDERED: SEVOFLURANE INHAL SOLN 250 ML PEN BTL ONE (18:17)
[2018-10-20] MEDS ORDERED: ROCURONIUM BROMIDE 10 MG/ML 5ML VIAL ONE (18:17)
[2018-10-20] MEDS ORDERED: SUCCINYLCHOLINE 200 MG/10 ML SYR ONE (18:17)
[2018-10-20] MEDS ORDERED: LIDOCAINE HCL 2% JELLY 5 ML TUBE ONE (18:17)
[2018-10-20] MEDS ORDERED: LIDOCAINE HCL 2% LOCAL INJ 5 ML SDV VIAL INJ ONE (18:17)
[2018-10-20] MEDS ORDERED: PROPOFOL IV EMULSION 10 MG/ML 20 ML VIAL ONE (18:17)
--- NOTE | 2018-10-20 20:44 | Operative Report ---
DATE OF PROCEDURE: SURGEON: Scott Hanson MD PROCEDURE: Esophagogastroduodenoscopy. PREPROCEDURE DIAGNOSIS: Dysphagia, foreign body of the esophagus. POSTOPERATIVE DIAGNOSIS: See impression below. INSTRUMENT: Gastroscope. MEDICATIONS: MAC. POSTOPERATIVE CONDITION: Good. INFORMED CONSENT: Risks, benefits, and alternatives have been explained to the patient, consent was obtained. PROCEDURE IN DETAIL: The patient was placed in supine position. The patient had general anesthesia. The scope was advanced into the esophagus, stomach, and duodenum. No foreign body noted in the esophagus. There was some inflation in the lower esophagus consistent with previous meat impaction. There was no stricture. There was a small hiatal hernia. There was gastritis, status post dilatation of the esophagus with a TTS balloon up to 18 mm. The patient tolerated the procedure very well. IMPRESSION: 1. Foreign body of the esophagus none seen at this time. 2. Mild esophagitis, gastritis, status post dilatation of the esophagus. RECOMMENDATION: Repeat dilatation as needed. Discharge home today. Advance diet. Scott Hanson MD HSO/MODL /[id number] cc: Scott Hanson MD
== END 2018-10-20 17:12 | disposition home or self-care (01) ==
LOC: ER 19:50 → ERHOLD 22:08 → MED/SURG 22:17
DX: R09.89 Other specified symptoms and signs involving the circulatory and respiratory systems (principal); R13.10 Dysphagia, unspecified; F32.9 Major depressive disorder, single episode, unspecified; I10 Essential (primary) hypertension; E78.5 Hyperlipidemia, unspecified; K44.9 Diaphragmatic hernia without obstruction or gangrene; Z82.49 Family history of ischemic heart disease and other diseases of the circulatory system; Z87.898 Personal history of other specified conditions; K20.9 Esophagitis, unspecified; K29.70 Gastritis, unspecified, without bleeding
CPT/HCPCS: 36415; 43235; 70490; 80053; 85025; 85610; 85730; 93005; 99284; C9113; G0378 ×2; J0360; J1610; J2001 ×2; J2405; J2704; J3010; J7030 ×2; 43233

== ENCOUNTER → 2019-10-19 | Outpatient (CLI) | payer MEDICARE, OTHER ==
[2019-10-19 15:11] LABS: BASOPHILS % 0.4 % (0.0-1.0); EOSINOPHILS # (AUTO) 0.1 (0.0-0.4); EOSINOPHILS % 1.3 % (0.0-6.0); HEMATOCRIT 33.9 % (38.2-49.6); HEMOGLOBIN 11.7 g/dL (14.0-18.0); LYMPHOCYTES # (AUTO) 1.5 (1.0-3.2); LYMPHOCYTES % 20.6 % (18.0-39.1); MEAN CORPUSCULAR HEMOGLOBIN 28.7 pg (28-32); MEAN CORPUSCULAR HGB CONC 34.5 g/dL (31-35); MEAN CORPUSCULAR VOLUME 83.1 fL (81-99); MONOCYTES # (AUTO) 0.5 (0.2-0.8); MONOCYTES % 7.5 % (4.4-11.3); NEUTROPHILS % 69.8 % (38.7-80.0); PLATELET COUNT 204 x10e3/uL (140-360); RED BLOOD COUNT 4.08 x10e6/uL (4.3-5.7); RED CELL DISTRIBUTION WIDTH 11.6 % (11.7-14.4)
--- NOTE | 2019-10-19 15:56 | Diagnostic Imaging Report ---
EXAMINATION: CHEST 2 VIEWS INDICATION: Shortness of breath COMPARISON: Chest radiograph 12/21/2010 FINDINGS: LINES/TUBES:None LUNGS:The lungs are well-inflated. No focal consolidation or pulmonary edema. PLEURA:No pleural effusion or pneumothorax. MEDIASTINUM:The cardiomediastinal silhouette appears normal in size and shape. BONES/SOFT TISSUES:No acute osseous injury. ABDOMEN:No free air under the diaphragm. IMPRESSION: No focal pneumonia or pulmonary edema. Signed by: Mindy Cabrales MD on 10/19/2019 3:53 PM
== END ==
LOC: RAD 14:36
PROVIDERS: ATTEND General Practice
DX: R06.02 Shortness of breath (principal); I10 Essential (primary) hypertension; R42 Dizziness and giddiness; K59.00 Constipation, unspecified
CPT/HCPCS: 36415; 71046; 85025